=== PATIENT | female | born 1975 | race American Indian/Alaskan Native ===

== ENCOUNTER 2017-10-06 22:54 | Emergency (ER) | payer MEDICAID ==
[2017-10-06 23:48] VITALS: BP 118/76
--- NOTE | 2017-10-07 02:39 | Emergency Department Report ---
ED General Adult HPI - General Chief complaint: Extremity Injury, Upper Stated complaint: RT PINKY FINGER PAIN Time Seen by Provider: 10/07/17 00:10 Source: patient Mode of arrival: Ambulatory Limitations: No Limitations - History of Present Illness Initial comments: Patient is a 5-year-old Palestinian female who is presenting with right fifth digit pain. Patient states earlier today she tripped and fell and hit her right pinky finger on the ground. She's had swelling at the DIP joint. Pain is 6 out of 10 in severity. Patient denies any other injury. Severity scale (0 -10): 6 Quality: aching, constant Consistency: constant Improves with: movement Associated Symptoms: denies other symptoms - Related Data Previous Rx's Medication Instructions Recorded Last Taken Type HYDROcodone/APAP 5-325 [[place] 1 each PO Q6HR PRN #10 tablet 10/07/17 Unknown Rx 5/325] Ibuprofen [Motrin] 800 mg PO Q8HR PRN #14 tablet 10/07/17 Unknown Rx Allergies Allergy/AdvReac Type Severity Reaction Status Date / Time amoxicillin Allergy Shortness Verified 10/06/17 23:48 of Breath ED Review of Systems ROS: Stated complaint: RT PINKY FINGER PAIN Other details as noted in HPI Comment: All other systems reviewed and negative Constitutional: denies: chills, fever Eyes: denies: eye pain, eye discharge, vision change ENT: denies: ear pain, throat pain Respiratory: denies: cough, shortness of breath, wheezing Cardiovascular: denies: chest pain, palpitations Endocrine: no symptoms reported Gastrointestinal: denies: abdominal pain, nausea, diarrhea Genitourinary: denies: urgency, dysuria, discharge Musculoskeletal: denies: back pain, joint swelling, arthralgia Skin: denies: rash, lesions Neurological: denies: headache, weakness, paresthesias Psychiatric: denies: anxiety, depression Hematological/Lymphatic: denies: easy bleeding, easy bruising ED Past Medical Hx - Past Medical History Previous Medical History?: No - Surgical History Past Surgical History?: No - Social History Smoking Status: Never Smoker Substance Use Type: None - Medications Home Medications: Home Medications Medication Instructions Recorded Confirmed Last Taken Type HYDROcodone/APAP 5-325 [[place] 1 each PO Q6HR PRN #10 tablet 10/07/17 Unknown Rx 5/325] Ibuprofen [Motrin] 800 mg PO Q8HR PRN #14 tablet 10/07/17 Unknown Rx ED Physical Exam - General Limitations: No Limitations General appearance: alert, in no apparent distress - Head Head exam: Present: atraumatic, normocephalic - Neck Neck exam: Present: normal inspection - Respiratory Respiratory exam: Present: normal lung sounds bilaterally. Absent: respiratory distress - Cardiovascular Cardiovascular Exam: Present: regular rate, normal rhythm. Absent: systolic murmur, diastolic murmur, rubs, gallop - Extremities Exam Extremities exam: Present: normal inspection, other (patient's right fifth digit has swelling at the DIP joint of the distal segment of the phalanges is held in flexion) ED Course Vital Signs 10/06/17 23:43 Temperature 98.5 F Pulse Rate 75 Respiratory 18 Rate Blood Pressure 118/76 Blood Pressure 118/76 [Right] O2 Sat by Pulse 100 Oximetry ED Medical Decision Making - Radiology Data Radiology results: image reviewed interpreted by me: The fifth distal phalanges has an avulsion fracture. The distal segment is held in flexion. The avulsion most likely contains a part of the tendon - Medical Decision Making Patient was placed in a finger splint with the distal segment held in extreme extension to reapproximate the avulsion to the main segment of the bowel patient will be discharged all with pain management as well as orthopedic follow -up. This constitutes fracture care Critical care attestation.: If time is entered above; I have spent that time in minutes in the direct care of this critically ill patient, excluding procedure time. ED Disposition Clinical Impression: Avulsion fracture of distal phalanx of finger Disposition: DC- TO HOME OR SELFCARE Is pt being admited?: No Does the pt Need Aspirin: No Condition: Fair Prescriptions: HYDROcodone/APAP 5-325 [[place] 5/325] 1 each PO Q6HR PRN #10 tablet PRN Reason: Pain Ibuprofen [Motrin] 800 mg PO Q8HR PRN #14 tablet PRN Reason: Pain Referrals: JUAN C RAYMOND MD [Primary Care Provider] - 3-5 Days PAULINE SAPP MD [Staff Physician] - 3-5 Days
--- NOTE | 2017-10-07 09:13 | XRay Report ---
Right hand fifth finger 3 views: History: Injured right pinky. Findings: There is a lucency fracture noted at the dorsal aspect of distal end of middle phalanx fifth finger. No dislocation. Impression: Findings as detailed above. The
== END 2017-10-07 02:51 | disposition home or self-care (01) ==
LOC: ED 22:54
DX: S62.666A Nondisplaced fracture of distal phalanx of right little finger, initial encounter for closed fracture (principal); W01.198A Fall on same level from slipping, tripping and stumbling with subsequent striking against other object, initial encounter; Y93.89 Activity, other specified; Y92.89 Other specified places as the place of occurrence of the external cause; Y99.8 Other external cause status; Z88.1 Allergy status to other antibiotic agents